=== PATIENT | male | born 1995 | race Caucasian/White ===

== ENCOUNTER 2016-09-19 06:40 | Emergency (ER) | payer BC, OTHER ==
[~2016-09-19] VITALS: Ht 177.8 cm; Wt 89.8 kg
[~2016-09-19 06:40] MED LIST: CETI-101 PO
[2016-09-19 06:53] VITALS: BP 148/75; PULSE 82; RESP 18; TEMP 97.7; O2SAT 98
--- NOTE | 2016-09-19 06:59 | NUR ---
Placed in room 08 . Placed on front desk monitor, blood pressure machine and pulse oximeter. To gown for exam. Side rails up. Report given to MEGAN Olson.
--- NOTE | 2016-09-19 07:00 | NUR ---
Pt report received from MEGAN Perry. Pt s/p Left lower wisdom tooth extraction on 09/17/2016 and was instructed per dentist to go to ER should swelling increase to area. Pt presents with c/o pain to left lower molar and pain to left throat per swallowing. Airway remains patent.
--- NOTE | 2016-09-19 07:14 | NUR ---
Dr. Ceron at bedside to assess pt.
[2016-09-19] MEDS ORDERED: cefTRIAXone 1 GM VIAL IM ONE (07:30)
[2016-09-19] MEDS ORDERED: LIDOCAINE 4% TOPICAL 50 ML BOTTLE MM ONE (07:30)
[2016-09-19] MEDS ORDERED: IBUPROFEN 800 MG TABLET PO ONE (07:30)
[2016-09-19] MEDS ORDERED: MORPHINE 4 MG/ML INJ. SYRINGE IVP ONE (07:30)
[2016-09-19] MEDS ORDERED: MORPHINE 4 MG/ML INJ. SYRINGE IM ONE (07:30)
[2016-09-19] MEDS ORDERED: MORPHINE SULFATE 10 MG/ML VIAL ONE (07:41)
[2016-09-19 07:55] VITALS: BP 158/76; PULSE 88; RESP 18; TEMP 98.2; O2SAT 100
--- NOTE | 2016-09-19 07:55 | NUR ---
Patient given written and verbal discharge instructions and verbalizes understanding. ER MD discussed with patient the results and treatment provided. Patient in stable condition. ID arm band removed. Rx of [place], Ibuprofen, Lidocaine 4%, Amoxicillin given. Patient educated on pain management and to follow up with PMD. Pain Scale 2/10, tolerable. Opportunity for questions provided and answered.
== END 2016-09-19 07:55 | disposition home or self-care (01) ==
LOC: SED 06:40
DX: K08.199 Complete loss of teeth due to other specified cause, unspecified class (principal)
CPT/HCPCS: 96372; 99284; J0696; J2270